=== PATIENT | male | born 1970 | race Caucasian/White ===

== ENCOUNTER 2016-09-06 07:50 | Day surgery (SDC) | payer OTHER ==
[2016-09-06] MEDS ORDERED: Lidocaine Topical 2% 30 mL Jelly ONE (07:53)
== END 2016-09-06 23:59 | disposition home or self-care (01) ==
LOC: END 07:50
PROVIDERS: ATTEND Internal Medicine Gastroenterology
DX: K21.9 Gastro-esophageal reflux disease without esophagitis (principal); K44.9 Diaphragmatic hernia without obstruction or gangrene; K22.4 Dyskinesia of esophagus